=== PATIENT | male | born 2005 | race Caucasian/White ===

== ENCOUNTER 2025-01-27 23:17 | Emergency (ER) | payer SELFPAY ==
[2025-01-27 23:18] VITALS: BP 163/95; PULSE 133; RESP 20; TEMP 37.6; O2SAT 96; BMI 42.3
--- OUTSIDE RECORDS SUMMARY | 2025-01-27 23:24 | XMS_ITS | Data Portability ---
Author Organization [facility] Elvis Gerard [facility], [facility] Address [address] [facility] [address] [place] [address] Assessment No assessment recorded. Plan of Treatment Reminders Order Date Submit Date Provider Last Modified By Organization Details Last Modified Time Details Appointments ACUTE VISIT 2024 09:10A M WALK-IN Not available Not available Not available Lab streptoco ccus group A Ag screen 2024 025 [email or web address] [facility] ([facility]), [address] [place], [address], 01/27/2025 14:55:50 Referral None recorded. Procedures None recorded. Surgeries None recorded. Imaging None recorded. Medication Orders ceftriaxo ne 1 gram solution for injection 2024 025 [email or web address] Not available 01/27/2025 11:39:24 cefdinir 300 mg capsule 2024 025 [facility]/Pharmacy #[id number], [address], [address], 01/27/2025 11:18:00 Patient TargetsNo targets recorded. Patient Instructions Encounter Date Encounter Id Patient Instructions Last Modified By Organization Details Last Modified Time 01/27/2025 [id number] If worsens go to ER as discussed. Increase fluids. [email or web address] Not available 01/27/2025 14:13:31 Reason for Referral None Reported. Results Created Date Observation Date Name Description Value Unit Range Abnormal Flag Note LastModifiedBy Organization Detail LastModifiedTime 01/28/20 25 01/27/2025 strep tococ cus group A Ag scree n Strep negati ve Not Available [facility] ([facility]) [address] [place], [address], 01/27/2025 10:27:26 Result Notes None recorded. Problems Name Problem SNOMED Code Status Onset Date Resolution Date Notes Provider Name and Address Organization Details Recorded Time Jaundice 20050203 Active 021 Jaundice ; 10/09/19 21 2:28PM by Cabrera Mccrary, Office Visit; Promoted ; acuity set as *; Not Available [facility] 3 03:12:32 Problem Notes None recorded. Medical Equipment None Reported. Allergies No known drug allergies Medications Name Sig Start Date Stop Date Status Note LastModified by Organization Details LastModified Time ceftriaxon e 1 gram solution for injection Take 1 g by injection route for 1 day. 2024 active given from provider stock Not Available Not Available Not Available cefdinir 300 mg capsule Take 1 capsule every 12 hours by oral route with meal(s) for 10 days. 2024 active Not Available Not Available Not Avai lable Vitals Date Recorded Body weight Body mass index (BMI) Body mass index (BMI) [Percentile] Per age and sex Body height Heart rate Oxygen saturation Body temperature Systolic And Diastolic Provider Name and Address Organization Details Last Updated DateTime 5 414698. 52 g 42.3 kg/m2 99 % 182.88 cm 118 /min 98 % 98.6 [degF] 146/86 mm[Hg] Leola Messina [facility] 5 10:30:11 Social History Question Answer Notes LastModified by Organizat ion Details LastModified Time Tobacco Smoking Status Never Smoker Leola Messina [facility] 01/27/2025 10:22:46 What Was The Date Of Your Most Recent Tobacco Screening? 01/27/2025 [email or web address] Information not available 01/27/2025 Sex: Unknown Functional Status None recorded. Mental Status None recorded. Family History Nothing Reported. Medical History No medical history recorded. Immunizations Vaccine Type Date Status Note Provider Nam e and Address Organization Details Recorded Time Hep B, adolescent or pediatric 5 completed Not Available [facility] 01/27/2025 10:21:51 DTaP-Hep B-IPV 6 completed Not Available [facility] 01/27/2025 10:21:51 Hib (PRP-T) 6 completed Not Available [facility] 01/27/2025 10:21:51 DTaP-Hep B-IPV 6 completed Not Available [facility] 01/27/2025 10:21:51 Hib (PRP-T) 6 completed Not Available [facility] 01/27/2025 10:21:51 DTaP-Hep B-IPV 6 completed Not Available [facility] 01/27/2025 10:21:51 pneumococcal conjugate PCV 7 6 completed Not Available [facility] 01/27/2025 10:21:51 Hib (PRP-T) 6 completed Not Available [facility] 01/27/2025 10:21:51 DTaP 7 completed Not Available [facility] 01/27/2025 10:21:51 Hib (PRP-T) 7 completed Not Available [facility] 01/27/2025 10:21:51 MMRV 7 completed Not Available [facility] 01/27/2025 10:21:51 pneumococcal conjugate PCV 7 7 completed Not Available [facility] 01/27/2025 10:21:51 DTaP-IPV 0 completed Not Available [facility] 01/27/2025 10:21:51 Pneumococcal conjugate PCV 13 0 completed Not Available [facility] 01/27/2025 10:21:51 varicella 1 completed Not Available [facility] 01/27/2025 10:21:51 Hep A, ped/adol, 2 dose 1 completed Not Available [facility] 01/27/2025 10:21:51 MMR 1 completed Not Available [facility] 01/27/2025 10:21:51 Tdap 0 completed Not Available [facility] 01/27/2025 10:21:51 meningococcal MCV4P 0 completed Not Available [facility] 01/27/2025 10:21:51 HPV9 0 completed Not Available [facility] 01/27/2025 10:21:51 Hep A, ped/adol, 2 dose 0 completed Not Available [facility] 01/27/2025 10:21:51 meningococcal conjugate quadrivalent, MenACWY-TT (MCV4) 4 completed Not Available [facility] 01/27/2025 10:21:51 HPV9 4 completed Not Available [facility] 01/27/2025 10:21:51 meningococcal B, OMV 4 completed Not Available [facility] 01/27/2025 10:21:51 Past Encounters Encounter ID Performer Location Encounter Start Date Encounter Closed Date Diagnosis/Indication Diagnosis SNOMED-CT Code Diagnosis ICD10 Code Diagnosis IMO Codes Diagnosis Note [id number] KELLEN MCCARTHY APRN [facility] ([facility]) [address] [place] [address] 01/27/2025 10:17:39 01/27/2025 11:48:34 Sore throat 252759530 J02.9 41771 Acute pharyngitis 174274 003 J02.9 [id number] Health Concerns Section Related Observation LastModified by Organization Detai ls LastModified Time None Recorded Concern Status LastModified by Organization Details LastModified Time None Recorded Advance Directives Directive None Recorded Payers Insurance Date Sequence Insurance Name Policy Number Policy Currie Covered Member ID Currie Member ID Guarantor Name 01/27/2025 1 *SELF PAY* Is renetta Tirado Notes Date Note Type Note Provider Name and Address Organization Details Recorded Time 01/27/2025 text/html walk in ptPt has a sore throat and fever for 3 days. Is having trouble swallowing and talking. Also having left ear pain that comes and goes. KELLEN MCCARTHY APRN [address] [place] [address], [id number], [facility] 01/27/2025 14:13:54
--- OUTSIDE RECORDS SUMMARY | 2025-01-27 23:24 | XMS_ITS | Continuity of Care Document ---
Author Organization [facility] Elvis Gerard [facility] Francisco Gerber, [facility] ([facility]) Address [address] [place] [address] Assessment No assessment recorded. Plan of Treatment Reminders Order Date Submit Date Provider Last Modified By Organization Details Last Modified Time Details Appointments ACUTE VISIT 2024 09:10A M WALK-IN Not available Not available Not available Lab streptoco ccus group A Ag screen 2024 025 [email or web address] [facility]), [address] [place], [address], 01/27/2025 14:55:50 Referral None recorded. Procedures None recorded. Surgeries None recorded. Imaging None recorded. Medication Orders ceftriaxo ne 1 gram solution for injection 2024 025 [email or web address] Not available 01/27/2025 11:39:24 cefdinir 300 mg capsule 2024 025 [facility]/Pharmacy #[id number], [address], [address], 01/27/2025 11:18:00 Patient TargetsNo targets recorded. Patient Instructions Encounter Date Encounter Id Patient Instructions Last Modified By Organization Details Last Modified Time 01/27/2025 [id number] If worsens go to ER as discussed. Increase fluids. [email or web address] Not available 01/27/2025 14:13:31 Reason for Referral None Reported. Results Created Date Observation Date Name Description Value Unit Range Abnormal Flag Note LastModifiedBy Organization Detail LastModifiedTime 01/28/20 25 01/27/2025 strep tococ cus group A Ag scree n Strep negati ve Not Available [facility] ([facility]) [address] [place], [address], 01/27/2025 10:27:26 Result Notes None recorded. Problems Name Problem SNOMED Code Status Onset Date Resolution Date Notes Provider Name and Address Organization Details Recorded Time Jaundice 53707235 Active 021 Jaundice ; 10/09/19 21 2:28PM by Cabrera Mccrary, Office Visit; Promoted ; acuity set as *; Not Available [facility] 3 03:12:32 Problem Notes None recorded. Medical [...] Address Organization Details Last Updated DateTime 5 403613. 52 g 42.3 kg/m2 99 % 182.88 cm 118 /min 98 % 98.6 [degF] 146/86 mm[Hg] Leola Messina [facility] 5 10:30:11 Social History Question Answer Notes LastModified by Organizat ion Details LastModified Time Tobacco Smoking Status Never Smoker Leola guerrero [facility] 01/27/2025 10:22:46 What Was The Date Of Your Most Recent Tobacco Screening? 01/27/2025 [email or web address] Information not available 01/27/2025 Sex: Unknown Functional Status None recorded. Mental Status None recorded. Family History Nothing Reported. Medical History No medical history recorded. Immunizations Vaccine Type Date Status Note Provider Nam e and Address Organization Details Recorded Time Hep B, adolescent or pediatric 5 completed Not Available [facility] 01/27/2025 10:21:51 DTaP-Hep B-IPV 6 completed Not Available [facility] 01/27/2025 10:21:51 Hib (PRP-T) 6 completed Not Available [facility] 01/27/2025 10:21:51 DTaP-Hep B-IPV 6 completed Not Available [facility] 01/27/2025 10:21:51 Hib (PRP-T) 6 completed Not Available [facility] 01/27/2025 10:21:51 DTaP-Hep B-IPV 6 completed Not Available [facility] 01/27/2025 10:21:51 pneumococcal conjugate PCV 7 6 completed Not Available [facility] 01/27/2025 10:21:51 Hib (PRP-T) 6 completed Not Available [facility] 01/27/2025 10:21:51 DTaP 7 completed Not Available [facility] 01/27/2025 10:21:51 Hib (PRP-T) 7 completed Not Available [facility] 01/27/2025 10:21:51 MMRV 7 completed Not Available [facility] 01/27/2025 10:21:51 pneumococcal conjugate PCV 7 7 completed Not Available [facility] 01/27/2025 10:21:51 DTaP-IPV 0 completed Not Available [facility] 01/27/2025 10:21:51 Pneumococcal conjugate PCV 13 0 completed Not Available [facility] 01/27/2025 10:21:51 varicella 1 completed Not Available [facility] 01/27/2025 10:21:51 Hep A, ped/adol, 2 dose 1 completed Not Available [facility] 01/27/2025 10:21:51 MMR 1 completed Not Available [facility] 01/27/2025 10:21:51 Tdap 0 completed Not Available [facility] 01/27/2025 10:21:51 meningococcal MCV4P 0 completed Not Available [facility] 01/27/2025 10:21:51 HPV9 0 completed Not Available [facility] 01/27/2025 10:21:51 Hep A, ped/adol, 2 dose 0 completed Not Available [facility] 01/27/2025 10:21:51 meningococcal conjugate quadrivalent, MenACWY-TT (MCV4) 4 completed Not Available [facility] 01/27/2025 10:21:51 HPV9 4 completed Not Available [facility] 01/27/2025 10:21:51 meningococcal B, OMV 4 completed Not Available [facility] 01/27/2025 10:21:51 Past Encounters Encounter ID Performer Location Encounter Start Date Encounter Closed Date Diagnosis/Indication Diagnosis SNOMED-CT Code Diagnosis ICD10 Code Diagnosis IMO Codes Diagnosis Note [id number] KELLEN MCCARTHY APRN [facility] ([facility]) [address] [place] [address] 01/27/2025 10:17:39 01/27/2025 11:48:34 Sore throat 645341522 J02.9 52664 Acute pharyngitis 109027 003 J02.9 [id number] Health Concerns Section Related Observation LastModified by Organization Detai ls LastModified Time None Recorded Concern Status LastModified by Organization Details LastModified Time None Recorded Payers Encounter Date Sequence Insurance Name Policy Number Policy [...] that comes and goes. KELLEN MCCARTHY APRN [address] [place], [address], [facility] 01/27/2025 14:13:54
--- NOTE | 2025-01-27 23:29 | CTR_ITS ---
PROCEDURE INFORMATION: Exam: CT Neck With Contrast Exam date and time: 01/27/2025 11:51 PM Age: 19 years old Clinical indication: Dysphagia / difficulty swallowing and tonsilitis; Tonsillar swelling with dysphagia and throat pain. ; Additional info: Throat pain, trouble swallowing, fb sensation TECHNIQUE: Imaging protocol: Computed tomography of the neck with contrast. Radiation optimization: All CT scans at this facility use at least one of these dose optimization techniques: automated exposure control; mA and/or kV adjustment per patient size (includes targeted exams where dose is matched to clinical indication); or iterative reconstruction. Contrast material: OMNI 350; Contrast volume: 100 ml; Contrast route: INTRAVENOUS (IV); COMPARISON: No relevant prior studies available. RADIATION DOSE METRICS: Total DLP (mGy-cm): 309.23 FINDINGS: Salivary glands: Normal. Glands are normal in size. Pharynx: Large left peritonsillar abscess measuring 3.17 cm transverse diameter, 3.48 cm AP diameter and 4.1 cm in vertical diameter. Some extension in the left parapharyngeal space and it extends inferiorly to the level of the left aryepiglottic folds. The epiglottis is not thickened. Marked narrowing of the oropharynx. There is a 1.3 x 1.69 cm right peritonsillar abscess. Larynx: Some wall thickening on left. Epiglottis is normal. Thyroid compromised evaluation of the thyroid gland due to artifact. Appears to be some enlargement of the left lobe. Nonemergent ultrasound suggested. Trachea: Visualized trachea is unremarkable. Lungs: Clear.. Lymph nodes: Enlarged reactive adenopathy. This more marked on the left. A left submandibular lymph node measuring 0.8 x 1.9 cm. A left carotid space lymph node measuring 1.9 x 1.5 cm in diameter. Bones/joints: Reversal of lordosis. Some artifact of the C7 and T1. Other: 1.65 cm retention cyst right maxillary sinus. CT/CT neck w con* [id number] IMPRESSION: 1. Large left peritonsillar abscess measuring 3.17 cm transverse diameter, 3.48 cm AP diameter, and 4.1 cm in vertical diameter. Marked narrowing of the oropharynx. Some extension in the left parapharyngeal space and extends inferiorly to the level of the left aryepiglottic fold. No thickening of the appendix. 2. Reactive adenopathy bilaterally more marked on the left. 3. Artifact affecting evaluation of the thyroid. Appearance of the enlarged left lobe of the thyroid. Nonemergent ultrasound follow-up recommended.
[2025-01-27 23:38] VITALS: BP 163/95; RESP 17; O2SAT 95
[2025-01-27] MEDS: methylPREDNISolone sod succ 125 mg/2 mL INJ IVP (23:45)
[2025-01-27] MEDS: diphenhydrAMINE 50 mg/mL SDV 1mL IVP (23:45)
[2025-01-27] MEDS: ondansetron 2 mg/ML SDV 2 mL 4 MG IVP (23:45)
--- NOTE | 2025-01-27 23:45 | ED_ITS ---
HPI - General Adult 2 General: Chief complaint: Airway/Esophagus Foreign Body Stated complaint: tongue and throat swelling / SOB Time Seen by Provider: 01/27/25 23:19 History of Present Illness: Patient is a 19 year old male presenting with complaints of swollen tonsils and sore throat. Symptoms have been present for approximately 3 days, with today being reported as the worst day. Patient describes throat/tonsil pain as jakob hurting. Associated symptoms include difficulty sleeping and some trouble swallowing. Patient denies itchiness or allergic symptoms. The patient was seen earlier today at another healthcare facility where they were tested for strep throat, which was reportedly negative. Patient received an antibiotic injection at the previous visit and was prescribed [id number]-pun-[id number] ear drops. Patient reports mild coughing and congestion. Related Data Home Medications ?Medication ?Instructions ?Recorded ?Confirmed No Known Home Medications 05/01/1901/01 Allergies Allergy/AdvReac Type Severity Reaction Status Date / Time No Known Allergies Allergy Verified 01/27/25 23:30 Physical Exam 2 Const: GENERAL APPEARANCE: cooperative and anxious O RIENTATION/CONSCIOUSNESS: Yes awake, Yes oriented to person, Yes oriented to place and Yes oriented to time HENMT: COMMON NORMALS: normocephalic, atraumatic, TM's normal bilaterally and Normal external nose present HEAD & SCALP: normocephalic and atraumatic F RAUL & SINUS: normal facial exam and face symmetric; no erythema and no edema NOSE: Normal external nose present and Nasal discharge present clear TYMPANIC MEMBRANE: TM's normal bilaterally TEETH & GINGIVA: no abnormal tooth and associated gingiva THROAT: abnormal tonsil bilateral erythema and hypertrophy Eye: COMMON NORMALS: Equal, round and reactive pupils present, EOMs intact bilaterally and conjunctivae normal CONJUNCTIVA: Yes conjunctivae normal P UPIL: Yes Equal, round and reactive pupils present Neck/C-Spine: COMMON NORMALS: full ROM, supple and no meningeal signs Chest: CHEST: Yes Symmetrical chest wall rise Resp: COMMON NORMALS: normal respiratory effort, No use of accessory muscles and clear to auscultation bilaterally AUSCULTATION: clear to auscultation bilaterally Cardio: COMMON NORMALS: regular rate and regular rhythm RATE: regular rate RHYTHM: regular rhythm Neuro: SENSORIUM/ORIENTATION: Yes oriented to person, Yes oriented to place and Yes oriented to time MENINGEAL SIGNS: Yes no meningeal signs Skin: COMMON NORMALS: no rashes or lesions noted GENERAL SKIN EXAM: no rashes or lesions noted Course 2 Vital Signs: Vital signs: Vital Signs Temperature 99.7 F H 01/27/25 23:18 Pulse Rate 100 01/28/25 07:47 Respiratory Rate 18 01/28/25 06:08 Blood Pressure 155/85 01/28/25 07:47 Pulse Oximetry 93 01/28/25 07:47 Oxygen Delivery Me thod Room Air 01/27/25 23:18 MDM - General Adult Medical Decision Making He is handling his own secretions. There is no stridor. He is oxygenating well. Temp is 99.7. He is mildly tachycardic. White blood cell count of 20. CRP is 152. Lactic acid is only 1.2. He received 900 of clindamycin here. He received 125 mg of Solu-Medrol as well. CT shows a left peritonsillar abscess measuring 3 x 4 cm. No epiglottic involvement. We do not have ENT available here. I spoke with ENT surgery at [facility] in [place]. He has graciously agreed to accept the patient. Lab Data 01/27/25 23:43 01/27/25 23:[address] 01/27/25 23:29 IMPRESSION: 1. Large left peritonsillar abscess measuring 3.17 cm transverse diameter, 3.48 cm AP diameter, and 4.1 cm in vertical diameter. Marked narrowing of the oropharynx. Some extension in the left parapharyngeal space and extends inferiorly to the level of the left aryepiglottic fold. No thickening of the appendix. 2. Reactive adenopathy bilaterally more marked on the left. 3. Artifact affecting evaluation of the thyroid. Appearance of the enlarged left lobe of the thyroid. Nonemergent ultrasound follow-up recommended. ADDENDUM: 01/28/25 0043 COMMENT: THIS REPORT CONTAINS FINDINGS THAT MAY BE CRITICAL TO PATIENT CARE. The exam findings were verbally communicated by me to ALEXANDRU GAONA via telephone conference at 12:40 AM [employer] on 01/28/2025. The findings were acknowledged and understood. Laboratory Results WBC 20.10 10^3/uL (4.5-13.0) H 01/27/25 23:43 RBC 5.01 10^6/uL (3.85-5.65) 01/27/25 23:43 Hgb 14.30 g/dL (13.2-15.6) 01/27/25 23:43 Hct 42.9 % (37-53) 01/27/25 23:43 MCV 85.6 fl (82-101) 01/27/25 23:43 MCH 28.5 pg (27-33) 01/27/25 23:43 MCHC 33.3 g/dL (30-55) 01/27/25 23:43 RDW 12.4 % (12.1-15.1) 01/27/25 23:43 Plt Count 426 10^3/cmm (157-399) H 01/27/25 23:43 MPV 9.5 fL (7.4-10.4) 01/27/25 23:43 Neut % (Auto) 80.3 % 01/27/25 23:43 Lymph % (Auto) 9.2 % 01/27/25 23:43 [place] % (Auto) 9.4 % 01/27/25 23:43 Eos % (Auto) 0.3 % 01/27/25 23:43 Baso % (Auto) 0.4 % 01/27/25 23:43 Neut # (Auto) 16.14 10^3/uL (1.8-8.0) H 01/27/25 23:43 Lymph # (Auto) 1.9 10^3/uL (1.5-6.5) 01/27/25 23:43 [place] # (Auto) 1.9 10^3/uL (0.2-0.9) H 01/27/25 23:43 Eos # (Auto) 0.1 10^3/uL (0.0-0.8) 01/27/25 23:43 Baso # (Auto) 0.1 10^3/uL (0.0-0.1) 01/27/25 23:43 Nucleated RBC % (auto) 0 % 01/27/25 23:43 Nucleated RBCs # 0.0 /100WBC 01/27/25 23:43 Sodium 139 mmol/L (136-145) 01/27/25 23:43 Potassium 3.9 mmol/L (3.5-5.1) 01/27/25 23:43 Chloride 99 mmol/L (98-107) 01/27/25 23:43 Carbon Dioxide 22 mmol/L (22-29) 01/27/25 23:43 Anion Gap 21.9 (5-19) H 01/27/25 23:43 BUN 15 mg/dL (6-20) 01/27/25 23:43 Creatinine 0.8 mg/dL (0.7-1.2) 01/27/25 23:43 GFR Calculation 123.2 mL/min (90-130) 01/27/25 23:43 Glucose 145 mg/dL (65-115) H 01/27/25 23:43 Calculated Osmolality 291 mOsm/kg (285-295) 01/27/25 23:43 Lactic Acid 1.2 mmol/L (0.5-2.2) 01/27/25 23:43 Calcium 10.0 mg/dL (8.5-10.5) 01/27/25 23:43 Total Bilirubin 1.2 mg/dL (0.15-1.2) 01/27/25 23:43 AST 29 U/L (0-40) 01/27/25 23:43 ALT 45 U/L (0-41) H 01/27/25 23:43 Alkaline Phosphatase 127 U/L (40-130) 01/27/25 23:43 C-Reactive Protein 152.7 mg/L (0.0-4.9) H 01/27/25 23:43 Total Protein 8.8 g/dL (6.6-8.7) H 01/27/25 23:43 Albumin 4.4 g/dL (3.5-5.2) 01/27/25 23:43 Globulin 4.4 g/dL (1.3-4.6) 01/27/25 23:43 Adenovirus (PCR) Not detected (NOT DETECT) 01/27/25 23:37 C. pneumoniae DNA (PCR) Not detected (NOT DETECT) 01/27/25 23: Coronavirus 229E (PCR) Not detected (NOT DETECT) 01/27/25 23:37 Monoscreen Negative (Negative) 01/27/25 23:43 Human Metapneumovir PCR Not detected (NOT DETECT) 01/27/25 23: Influenza A (H1) PCR Not detected (NOT DETECT) 01/27/25 23:37 Influ A (H1/09) PCR Not detected (NOT DETECT) 01/27/25 23:37 Influenza A (H3) PCR Not detected (NOT DETECT) 01/27/25 23:37 Influenza Type A (PCR) Not detected (NOT DETECT) 01/27/25 23:37 Influenza Type B (PCR) Not detected (NOT DETECT) 01/27/25 23:37 M. pneumoniae (PCR) Not detected (NOT DETECT) 01/27/25 23:37 Parainfluenza 1 (PCR) Not detected (NOT DETECT) 01/27/25 23:37 Parainfluenza 2 (PCR) Not detected (NOT DETECT) 01/27/25 23:37 Parainfluenza 3 (PCR) Not detected (NOT DETECT) 01/27/25 23:37 Parainfluenza 4 (PCR) Not detected (NOT DETECT) 01/27/25 23:37 RSV Type A (PCR) Not detected (NOT DETECT) 01/27/25 23:37 RSV Type B (PCR) Not detected (NOT DETECT) 01/27/25 23:37 Entero/Rhino (PCR) Not detected (NOT DETECT) 01/27/25 23:37 SARS-CoV-2 (PCR) Not detected (NOT DETECT) 01/27/25 23:37 All radiology interpretation(s) finalized by discharge Discharge Plan Discharge Patient Disposition: Xfer Short-Term Hosp Clinical Impression: Abscess, peritonsillar Condition: Stable Referrals: Jonathan Mckee Jr, MD [Primary Care Provider, Pediatrics] Print Language: Maltese Coding Level of Care Code ED Sales Review Clerk for [facility] Shaylee
[2025-01-27 23:51] LABS: Hematocrit 42.9 % (37-53); Hemoglobin 14.30 g/dL (13.2-15.6); Mean Corpuscular HGB Conc 33.3 g/dL (30-55); Mean Corpuscular Hemoglobin 28.5 pg (27-33); Mean Corpuscular Volume 85.6 fl (82-101); Nucleated Red Blood Cells % 0 %; Platelet Count 426 10^3/cmm (157-399); Red Blood Count 5.01 10^6/uL (3.85-5.65); White Blood Count 20.10 10^3/uL (4.5-13.0)
[2025-01-27] MEDS: iohexol 350 mg/mL 500 mL Btl (per mL) IV (23:52)
[2025-01-28] VITALS (10 sets, daily range): BP systolic 135–174; BP diastolic 71–86; PULSE 95–116; RESP 17–19; O2SAT 93–96
[2025-01-28 00:12] LABS: Alanine Aminotransferase 45 U/L (0-41); Albumin Level 4.4 g/dL (3.5-5.2); Alkaline Phosphatase 127 U/L (40-130); Anion Gap 21.9 (5-19); Aspartate Amino Transferase 29 U/L (0-40); Blood Urea Nitrogen 15 mg/dL (6-20); Calcium 10.0 mg/dL (8.5-10.5); Carbon Dioxide 22 mmol/L (22-29); Chloride 99 mmol/L (98-107); Globulin 4.4 g/dL (1.3-4.6); Glucose 145 mg/dL (65-115); Osmolality Calculated 291 mOsm/kg (285-295); Potassium 3.9 mmol/L (3.5-5.1); Sodium 139 mmol/L (136-145); Total Protein 8.8 g/dL (6.6-8.7)
[2025-01-28 00:13] LABS: Lactic Sepsis W/Reflex 1.2 mmol/L (0.5-2.2)
--- NOTE | 2025-01-28 01:22 | PC.NURSE ---
report called to kerline carvalho rn she verbalized understanding and had no further questions or concerns
[2025-01-28 01:30] LABS: Coronavirus 229E,HKU1,NL63,OC4 Not Detected (NOT DETECT); Parainfluenza Virus Type 1 Not Detected (NOT DETECT); Parainfluenza Virus Type 2 Not Detected (NOT DETECT); Parainfluenza Virus Type 3 Not Detected (NOT DETECT); Parainfluenza Virus Type 4 Not Detected (NOT DETECT); SARS-COV-2 Not Detected (NOT DETECT)
--- NOTE | 2025-01-28 07:12 | PC.NURSE ---
patients O2 saturation was dropping into the mid 80's, Dr. Johnson aware and gave verbal to start supplemental O2. 2L of O2 via NC applied to patient, sats are now in the low to mid 90's. family at bedside, no needs verbalized at this time.
== END 2025-01-28 07:49 | disposition short-term general hospital (02) ==
PROVIDERS: Emergency Provider Emergency Medicine; PCP Pediatrics Adolescent Medicine
DX: J36 Peritonsillar abscess (principal); Z11.52 Encounter for screening for COVID-19
CPT/HCPCS: 36415; 70491; 80053; 83605; 85025; 86140; 86308; 87040; 87486; 87581; 87633; 96365; 96375; 99285; J1200; J2405; J2919; J3490